=== PATIENT | male | born 1985 | race Hispanic/Latino ===

== ENCOUNTER 2018-08-26 05:10 | Emergency (ER) | payer SELFPAY ==
[2018-08-26 05:33] LABS: Hemoglobin 15.6 g/dL (14.0-18.0); Mean Corpuscular HGB CONC 34.3 g/dL (32.0-36.0); Mean Corpuscular Hemoglobin 31.1 pg (27.0-31.0); Mean Corpuscular Volume 90.5 fL (78.0-98.0); Platelet Count 295 thou/uL (130-400); RBC Distribution Width 11.4 % (11.5-14.5); Red Blood Cell (RBC) Count 5.03 mill/uL (4.70-6.10); White Blood Cell (WBC) Count 17.4 thou/uL (4.8-10.8)
[2018-08-26] MEDS ORDERED: Acetaminophen 500 MG TAB ONE (05:45)
[2018-08-26 05:47] LABS: ALT (SGPT) 31 U/L (8-55); AST (SGOT) 20 U/L (5-34); Albumin 4.5 g/dL (3.5-5.0); Alkaline Phosphatase 71 U/L (40-150); Anion Gap 14 mmol/L (10-20); BUN (Urea Nitrogen) 13 mg/dL (8.9-20.6); Bilirubin, Total 1.2 mg/dL (0.2-1.2); Calc. Creatinine Clearance 0 mL/min (70-130); Calcium 9.6 mg/dL (7.8-10.44); Carbon Dioxide 26 mmol/L (22-29); Chloride 100 mmol/L (98-107); Estimated GFR-MDRD 76; Globulin 3.4 g/dL (2.4-3.5); Glucose 172 mg/dL (70-105); Potassium 4.1 mmol/L (3.5-5.1); Protein, Total 7.9 g/dL (6.0-8.3); Sodium 136 mmol/L (136-145)
[2018-08-26 05:54] LABS: Band 10 % (5-11); Lymphocytes 7 % (21-51); MDiff Complete? YES; Monocytes 3 % (0-10); Neutrophil 80 % (42-75); Platelet Morphology Comment Appears Adequate; RBC Morphology Normal
[2018-08-26] MEDS ORDERED: Ibuprofen 800 MG TAB ONE (06:34)
--- NOTE | 2018-08-26 07:42 | RAD ---
CHEST 1 VIEW: Date: 08/26/18 INDICATION: Chest pain and left flank pain. COMPARISON: None. FINDINGS: There are low lung volumes accentuating the cardiac silhouette and pulmonary vasculature. No definite consolidation, pleural effusion, or pneumothorax evident. No acute osseous abnormality is evident. IMPRESSION: Low lung volumes. POS: [facility]
== END 2018-08-26 06:37 | disposition home or self-care (01) ==
LOC: ERS 05:10
DX: J11.1 Influenza due to unidentified influenza virus with other respiratory manifestations (principal)
CPT/HCPCS: 71045; 80053; 85025; 87804; 93005; 96360

== ENCOUNTER 2020-10-16 08:35 | Emergency (ER) | payer SELFPAY ==
[2020-10-16] MEDS ORDERED: Cephalexin 250 MG CAP ONE (11:48)
[2020-10-16] MEDS ORDERED: Sulfameth/Trimethoprim DS 800-160mg TAB ONE (11:59)
[2020-10-16] MEDS ORDERED: Ibuprofen 800 MG TAB ONE (12:01)
== END 2020-10-16 12:12 | disposition home or self-care (01) ==
LOC: ERS 08:35
DX: M25.562 Pain in left knee (principal); L03.116 Cellulitis of left lower limb

== ENCOUNTER 2020-10-17 20:33 | Emergency (ER) | payer SELFPAY | END 2020-10-17 21:56 | disposition home or self-care (01) | LOC: ERS 20:33 | DX: L03.116 Cellulitis of left lower limb (principal); Z79.899 Other long term (current) drug therapy | CPT/HCPCS: 36416; 99283 ==